=== PATIENT | female | born 1960 | race Caucasian/White ===

== ENCOUNTER 2020-12-22 15:06 | Inpatient (IN) | payer BC ==
[~2020-12-22] VITALS: Ht 165.1 cm; Wt 63.6 kg
[2020-12-22] MEDS ORDERED: CYMB60CA4 PO (15:15)
[2020-12-22] MEDS ORDERED: CRES5TAB PO (15:15)
[2020-12-22] MEDS ORDERED: SYNT100T PO (15:15)
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
--- OUTSIDE RECORDS SUMMARY | 2020-12-22 16:20 | CCD ---
Author Author [facility] Address Unknown Phone Unavailable Support Name Relationship Address Phone [place] Next Of Kin UNKNOWN [place], [place] Unavailable NAVEED HERRON Next Of Kin [address] [place] [address] Re-disclosure Warning The records that you are about to access may contain information from federally-assisted alcohol or drug abuse programs. If such information is present, then the following federally mandated warning applies: This information has been disclosed to you from records protected by federal confidentiality rules (42 CFR part 2). The federal rules prohibit you from making any further disclosure of this information unless further disclosure is expressly permitted by the written consent of the person to whom it pertains or as otherwise permitted by 42 CFR part 2. A general authorization for the release of medical or other information is NOT sufficient for this purpose. The Federal rules restrict any use of the information to criminally investigate or prosecute any alcohol or drug abuse patient.The records that you are about to access may contain highly sensitive health information, the redisclosure of which is protected by Article 27-F of the [facility] Public Health law. If you continue you may have access to information: Regarding HIV / AIDS; Provided by facilities licensed or operated by the [facility] Office of Mental Health; or Provided by the [facility] Office for People With Developmental Disabilities. If such information is present, then the following [facility] mandated warning applies: This information has been disclosed to you from confidential records which are protected by state law. State law prohibits you from making any further disclosure of this information without the specific written consent of the person to whom it pertains, or as otherwise permitted by law. Any unauthorized further disclosure in violation of state law may result in a fine or alf sentence or both. A general authorization for the release of medical or other information is NOT sufficient authorization for further disc losure. Medications No Information Insurance Providers Payer name Policy type / Coverage type Policy ID Covered republican ID Covered republican's relationship to alatorre Policy Alatorre Plan Information [place] P[place] 302/307 [id number] SP [id number] Problems, Conditions, and Diagnoses No Information Surgeries/Procedures No Information Results No Information Social History No Information
[2020-12-22 16:38] LABS: BASO % 0.7 % (0.0-1.0); EOS # 0.2 10^3/uL (0.0-0.5); EOS % 3.6 % (0.0-3.0); HEMATOCRIT 38.7 % (36.0-47.0); HEMOGLOBIN 12.8 g/dl (12.0-15.5); LYMPH # 1.5 10^3/uL (1.5-5.0); MEAN CORPUSCULAR HEMOGLOBIN 31.6 pg (27.0-33.0); MEAN CORPUSCULAR HGB CONC 33.1 g/dl (32.0-36.5); MEAN CORPUSCULAR VOLUME 95.6 fl (80.0-96.0); MONO # 0.6 10^3/uL (0.0-0.8); MONO % 14.5 % (2.0-8.0); NEUTROPHILS # 1.9 10^3/uL (1.5-8.5); PLATELET COUNT, AUTOMATED 218 10^3/uL (150-450); RED BLOOD COUNT 4.05 10^6/uL (4.00-5.40); WHITE BLOOD COUNT 4.1 10^3/uL (4.0-10.0)
[2020-12-22 16:58] LABS: ERYTHROCYTE SEDIMENTATION RATE 7 mm/hr (0-30)
[2020-12-22 17:09] LABS: BLOOD UREA NITROGEN 23 MG/DL (7-18); CARBON DIOXIDE LEVEL 30 MEQ/L (21-32); CHLORIDE LEVEL 104 MEQ/L (98-107); GLOMERULAR FILTRATION RATE > 60.0 (>45); GLUCOSE, FASTING 102 MG/DL (70-100); POTASSIUM SERUM 3.8 MEQ/L (3.5-5.1); SODIUM LEVEL 140 MEQ/L (136-145)
--- NOTE | 2020-12-22 17:44 | ECGEPIP ---
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
[2020-12-22] MEDS ORDERED: NS 1,000 ML IV ONE (18:30)
[2020-12-22] MEDS ORDERED: D5W/0.45% SODIUM CHLORIDE 1,000 ML IV SCH (18:35)
[2020-12-22] MEDS ORDERED: MORPHINE 2 MG/ML 1ML VIAL (J2270) IV PRN (18:35)
--- OUTSIDE RECORDS SUMMARY | 2020-12-22 18:36 | CCD ---
Author Author [facility] Address Unknown Phone Unavailable Support Name Relationship Address Phone [place] Next Of Kin [place], [place] Unavailable NAVEED HERRON Next Of Kin [address] [place] [address] Re-disclosure Warning The records that you are [...] is protected by Article 27-F of the [facility] Public Health law. If you continue you may have access to information: Regarding HIV / AIDS; Provided by facilities licensed or operated by the [facility] Office of Mental Health; or Provided by the [facility] Office for People With Developmental Disabilities. If such information is present, then the following [facility] mandated warning applies: This information has been [...] law may result in a fine or skilled nursing sentence or both. A general authorization for the release of medical or other information is NOT sufficient authorization for further disc losure. Medications No Information Insurance Providers Payer name Policy type / Coverage type Policy ID Covered republican ID Covered republican's relationship to alatorre Policy Alatorre Plan Information [employer]BS [place] PPO 302/307 [id number] SP [id number] Problems, Conditions, and Diagnoses No Information Surgeries/Procedures No Information Results No Information Social History No Information
--- NOTE | 2020-12-22 18:55 | REP ---
INDICATION: PREOP. COMPARISON: None. TECHNIQUE: PA and lateral FINDINGS: The lung rosado are adequately inflated. There is no pleural effusion, lateral pleural thickening or dense consolidation. Some minor apical pleuroparenchymal scarring, left greater than right. No cardiomegaly, vascular redistribution or pulmonary edema. The aorta and airway are intact. The bony thorax shows no acute finding. No free air under the diaphragm. IMPRESSION: 1. No acute cardiopulmonary change. <Electronically signed by Jordan Prakash > 12/22/20 0424
[2020-12-22] MEDS ORDERED: LAMI250T8 PO (19:10)
[2020-12-22] MEDS ORDERED: METF-838 PO (19:10)
[2020-12-22] MEDS ORDERED: LEVO50CA PO (19:10)
[2020-12-22] MEDS ORDERED: CLON1TAB8 PO (19:10)
[2020-12-22 19:11] LABS: RSV AMPLIFICATION NEGATIVE (NEGATIVE)
[2020-12-22] MEDS ORDERED: THYR15TA PO (19:11)
[2020-12-22] MEDS ORDERED: HOME MED LIST COMPLETE! XX SCH (19:15)
[2020-12-22] MEDS ORDERED: GLUCAGON INJ 1MG VIAL SC PRN (19:45)
[2020-12-22] MEDS ORDERED: GLUCOSE 4GM CHEW TABLET PO PRN (19:45)
[2020-12-22] MEDS ORDERED: DEXTROSE 50% 50 ML SYRINGE IV PRN (19:45)
[2020-12-22] MEDS ORDERED: LORazepam 2 MG/ML VIAL IV PRN (19:45)
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
[2020-12-22] MEDS ORDERED: fentaNYL 100 MCG/2 ML INJECTION (J3010) As Ordered ONE (20:40)
[2020-12-22] MEDS ORDERED: propofoL 200 MG/20 ML VIAL As Ordered ONE (20:40)
[2020-12-22] MEDS ORDERED: MIDAZOLAM INJ 2MG/2ML VIAL (J2250 PER 1MG) As Ordered ONE (20:40)
[2020-12-22] MEDS ORDERED: LIDOCAINE 2% 100MG/5ML SDV (FOR ANES.) As Ordered ONE (20:40)
[2020-12-22] MEDS: HumaLOG INSULIN (NovoLOG) PER UNIT SC SCH (21:00)
[2020-12-22] MEDS ORDERED: ceFAZolin 2 GM/D5W 50 ML IV BAG (J0690 PER 500MG) As Ordered ONE (21:11)
[2020-12-22] MEDS ORDERED: ONDANSETRON 4MG/2ML VIAL As Ordered ONE (21:14)
[2020-12-22] MEDS ORDERED: dexameTHASONE 4 MG/ML 1ML VIAL (J1100 PER 1MG) As Ordered ONE (21:14)
[2020-12-22] MEDS ORDERED: BUPIVACAINE HCL 0.25% 30ML VIAL As Ordered ONE (21:25)
[2020-12-22] MEDS ORDERED: TRANEXAMIC ACID 100 MG/ML 10ML VIAL As Ordered ONE (21:25)
[2020-12-22] MEDS ORDERED: oxyCODONE 5MG TAB PO PRN (22:40)
[2020-12-22] MEDS ORDERED: fentaNYL 100 MCG/2 ML INJECTION (J3010) IV PRN (22:40)
[2020-12-22] MEDS ORDERED: LR 1,000 ML IV SCH (22:40)
[2020-12-22] MEDS ORDERED: ONDANSETRON 4MG/2ML VIAL IV PRN (22:40)
[2020-12-22 23:00] VITALS: BP 131/87
[2020-12-22 23:30] VITALS: BP 128/83
[2020-12-23] VITALS (12 sets, daily range): BP systolic 94–137; BP diastolic 62–85
[2020-12-23] MEDS: DULoxetine 30MG CAPSULE (CYMBALTA) PO SCH ×2 (00:06→20:14)
[2020-12-23] MEDS: lamoTRIgine 100MG TAB PO SCH ×3 (00:06→20:16)
[2020-12-23] MEDS: PERCOCET 5MG/325MG TAB PO PRN ×4 (00:06→20:18)
[2020-12-23] MEDS: lamoTRIgine 25MG TAB PO SCH ×3 (00:07→20:15)
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
[2020-12-23] MEDS: LEVOTHYROXINE 50MCG TABLET (0.05MG) PO SCH (06:27)
[2020-12-23 06:50] LABS: BASO % 0.4 % (0.0-1.0); HEMATOCRIT 38.9 % (36.0-47.0); HEMOGLOBIN 12.9 g/dl (12.0-15.5); LYMPH # 0.7 10^3/uL (1.5-5.0); LYMPH % 13.8 % (24.0-44.0); MEAN CORPUSCULAR HEMOGLOBIN 31.3 pg (27.0-33.0); MEAN CORPUSCULAR HGB CONC 33.2 g/dl (32.0-36.5); MEAN CORPUSCULAR VOLUME 94.4 fl (80.0-96.0); MONO # 0.1 10^3/uL (0.0-0.8); MONO % 2.9 % (2.0-8.0); NEUTROPHILS % 82.7 % (36.0-66.0); PLATELET COUNT, AUTOMATED 223 10^3/uL (150-450); RED BLOOD COUNT 4.12 10^6/uL (4.00-5.40); WHITE BLOOD COUNT 4.9 10^3/uL (4.0-10.0)
[2020-12-23 07:09] LABS: HEMOGLOBIN A1c 5.3 %
[2020-12-23 07:16] LABS: BLOOD UREA NITROGEN 13 MG/DL (7-18); CALCIUM LEVEL 8.5 MG/DL (8.8-10.2); CARBON DIOXIDE LEVEL 25 MEQ/L (21-32); CHLORIDE LEVEL 106 MEQ/L (98-107); CREATININE FOR GFR 0.82 MG/DL (0.55-1.30); GLOMERULAR FILTRATION RATE > 60.0 (>45); GLUCOSE, FASTING 174 MG/DL (70-100); POTASSIUM SERUM 4.2 MEQ/L (3.5-5.1); SODIUM LEVEL 138 MEQ/L (136-145)
[2020-12-23] MEDS: HumaLOG INSULIN (NovoLOG) PER UNIT SC SCH ×4 (08:10→21:00)
[2020-12-23] MEDS: ROSUVASTATIN 10 MG TAB (CRESTOR) PO SCH (08:10)
[2020-12-23] MEDS ORDERED: FLUBLOK(EGG FREE)(QUAD)INFLUENZA VACC 0.5ML SYRINGE 18YRS & OLDER IM ONE (09:00)
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
[2020-12-23] MEDS ORDERED: NS 1,000 ML IV SCH (10:55)
[2020-12-23] MEDS ORDERED: PERCOCET PO (16:31)
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
[2020-12-24] MEDS: PERCOCET 5MG/325MG TAB PO PRN ×2 (05:28→14:08)
[2020-12-24] MEDS: LEVOTHYROXINE 50MCG TABLET (0.05MG) PO SCH (05:28)
[2020-12-24 06:00] VITALS: BP 113/71
[2020-12-24 06:05] LABS: BASO % 0.2 % (0.0-1.0); EOS # 0.2 10^3/uL (0.0-0.5); EOS % 2.8 % (0.0-3.0); HEMATOCRIT 38.9 % (36.0-47.0); HEMOGLOBIN 12.8 g/dl (12.0-15.5); LYMPH # 2.2 10^3/uL (1.5-5.0); MEAN CORPUSCULAR HEMOGLOBIN 31.3 pg (27.0-33.0); MEAN CORPUSCULAR HGB CONC 32.9 g/dl (32.0-36.5); MEAN CORPUSCULAR VOLUME 95.1 fl (80.0-96.0); MONO # 0.5 10^3/uL (0.0-0.8); MONO % 9.3 % (2.0-8.0); NEUTROPHILS # 2.4 10^3/uL (1.5-8.5); NEUTROPHILS % 45.5 % (36.0-66.0); PLATELET COUNT, AUTOMATED 196 10^3/uL (150-450); RED BLOOD COUNT 4.09 10^6/uL (4.00-5.40); WHITE BLOOD COUNT 5.3 10^3/uL (4.0-10.0)
[2020-12-24 06:23] LABS: BLOOD UREA NITROGEN 15 MG/DL (7-18); CALCIUM LEVEL 8.7 MG/DL (8.8-10.2); CARBON DIOXIDE LEVEL 25 MEQ/L (21-32); CHLORIDE LEVEL 112 MEQ/L (98-107); GLOMERULAR FILTRATION RATE > 60.0 (>45); GLUCOSE, FASTING 94 MG/DL (70-100); SODIUM LEVEL 141 MEQ/L (136-145)
[2020-12-24] MEDS: HumaLOG INSULIN (NovoLOG) PER UNIT SC SCH ×2 (07:30→12:00)
[2020-12-24] MEDS: lamoTRIgine 100MG TAB PO SCH (09:26)
[2020-12-24] MEDS: ROSUVASTATIN 10 MG TAB (CRESTOR) PO SCH (09:26)
[2020-12-24] MEDS: lamoTRIgine 25MG TAB PO SCH (09:26)
--- NOTE | 2020-12-24 11:50 | DS.PDOC ---
Discharge Summary General Date of Admission Dec 22, 2020 at 18:28 Date of Discharge 12/24/20 Discharge Summary discharge summary dictated job #[id number] Vital Signs/I&Os Vital Signs Date Time Temp Pulse Resp B/P (MAP) Pulse Ox O2 Delivery O2 Flow Rate FiO2 12/24/20 06:00 97.7 68 17 113/71 (85) 94 Room Air I&O- Last 24 Hours up to 6 AM 12/24/20 06:00 Intake Total 2700 ml Output Total 1850 ml Balance 850 ml Laboratory Data Labs 24H Laboratory Tests 2 12/23/20 16:52: Bedside Glucose (Misc Panel) 126H 12/23/20 20:49: Bedside Glucose (Misc Panel) 112 12/24/20 05:27: Immature Granulocyte % (Auto) 0.2, Neutrophils (%) (Auto) 45.5, Lymphocytes (%) (Auto) 42.0, Monocytes (%) (Auto) 9.3H, Eosinophils (%) (Auto) 2.8, Basophils (%) (Auto) 0.2, Neutrophils # (Auto) 2.4, Lymphocytes # (Auto) 2.2, Monocytes # (Auto) 0.5, Eosinophils # (Auto) 0.2, Basophils # (Auto) 0.0, Nucleated Red Blood Cells % (auto) 0.0, Anion Gap 4L, Glomerular Filtration Rate > 60.0, Calcium Level 8.7L 12/24/20 11:42: Bedside Glucose (Misc Panel) 75L CBC/BMP Laboratory Tests 12/24/20 05:27 FSBS Laboratory Tests Test 12/23/20 16:52 12/23/20 20:49 12/24/20 11:42 Range/Units Bedside Glucose (Misc Panel) 126 112 75 80-115 MG/DL Microbiology Microbiology 12/22/20 Gram Stain - Final, Resulted 12/22/20 Abscess Culture, Resulted Pending 12/22/20 Anaerobic Culture, Resulted Pending 12/22/20 Gram Stain - Final, Resulted 12/22/20 Abscess Culture, Resulted Pending 12/22/20 Anaerobic Culture, Resulted Pending Discharge Medications Scheduled Duloxetine Hcl (Cymbalta) 60 Mg Capsule.dr, 60 MG PO QHS, (Reported) Lamotrigine (Lamictal Xr) 250 Mg Tab.er.24, 250 MG PO DAILY, (Reported) Levothyroxine Sodium (Levothyroxine) 50 Mcg Capsule, 50 MCG PO DAILY, (Reported) Metformin HCl (Metformin HCl ER) 500 Mg Tab.er.24h, 500 MG PO QPM, (Reported) Rosuvastatin Calcium (Crestor) 5 Mg Tablet, 5 MG PO DAILY, (Reported) Thyroid ([place] Thyroid) 15 Mg Tablet, 15 MG PO DAILY, (Reported) Scheduled PRN Clonazepam (Clonazepam) 1 Mg Tablet, 1-2 MG PO QHS PRN for ANXIETY, (Reported) Oxycodone/Acetaminophen (Oxycodone-Acetaminophen 5-325) 1 Each Tablet, 1 TAB PO Q6HP PRN for MODERATE PAIN (PS 5-7) Allergies Coded Allergies: Sulfa (Sulfonamide Antibiotics) (Verified Allergy, Unknown, 12/22/20) KANDICE BROWN MD Dec 24, 2020 11:50
[2020-12-24 14:00] VITALS: BP 126/80
--- NOTE | 2020-12-24 18:10 | DSES ---
DISCHARGE SUMMARY DATE OF ADMISSION: 12/22/2020 DATE OF DISCHARGE: 12/24/2020 ORTHOPEDIC SURGEON: Zbigniew Payne MD. PROCEDURE PERFORMED: 12/22/2020: Left index escharotomy of the distal proximal phalanx and irrigation and debridement. PRIMARY DISCHARGE DIAGNOSES: 1. Traumatic injury to the left index finger secondary to electrocution with compartment syndrome status post incision, drainage and irrigation 12/22/2020. 2. Type-2 diabetes. 3. Hypertension. 4. Dyslipidemia. 5. Hypothyroidism. 6. Depression. DISCHARGE MEDICATIONS: 1. Percocet 1 tablet as needed q6h as needed for pain. 2. Clonazepam 1-2 mg at bedtime as needed for anxiety. 3. Cymbalta 60 mg at bedtime. 4. Lamictal 250 mg daily. 5. Synthroid 50 mcg daily. 6. Metformin 500 mg every evening. 7. Crestor 5 mg daily. 8. Thyroid 15 mg daily. DISCHARGE INSTRUCTIONS: 1. Wound care and post-op care per orthopedics surgeon Dr. Payne, to see the patient in the clinic within 5 days of discharge. 2. Primary care physician appointment within 7 days. HISTORY AND HOSPITAL COURSE: This is a 60 -year-old female admitted on 12/22/2020 after a traumatic injury with electrocution as she plugged her cord into the wall socket. Patient had visible swelling, redness and had severe pain of the left index finger and presented to the Emergency Room with complaints of feeling "like there's static in it". Orthopedic surgery saw the patient in the ER. The patient was diagnosed with traumatic compartment syndrome with recommendations for a fasciotomy, incision, drainage and debridement in the operating room. Patient was medically optimized by hospitalist and was sent directly to the OR from the Emergency Room. Patient underwent left index finger escharotomy of the distal and proximal phalanx and irrigation and debridement. Patient had some pain and discussed, was given Percocet as needed which resolved. Occupational therapy saw the patient with recommendations for outpatient OT. Patient was afebrile with normal white count and no empiric antibiotics were given. Patient is cleared for discharge home. PHYSICAL EXAMINATION ON DISCHARGE: Temperature 97.7, pulse 68, respiratory rate 17, blood pressure 113/71, 94% on room air. General: Patient is awake, alert, oriented to person, place and time. HEENT: No cyanosis. Extraocular muscles intact. Moist mucous membranes. Neck: No JVD or thyromegaly. Lungs: Clear to auscultation, no wheezes, rhonchi or rales. Heart: S1 and S2 sinus rhythm. Abdomen: Soft, nontender, nondistended, positive bowel sounds. Extremities: No cyanosis, clubbing or pitting edema. Skin: Left upper arm, hand and wrist are in a splint and bandaged. All of the fingers are pink in color, warm to touch. Patient is able to oppose the thumb with the third, fourth and fifth digits. LABORATORY DATA/IMAGING STUDIES/MICROBIOLOGY: Please see the chart. Time spent on discharge: Thirty minutes MTDD
== END 2020-12-24 15:30 | disposition home or self-care (01) | DRG 316 ==
LOC: M ED 15:06 → M ED INP 18:28 → CANRESERV 19:29 → ENRESERV 19:29 → M MSPAV 22:57
PROVIDERS: ADMIT Family Medicine; ATTEND General Practice
PROC: 0LD80ZZ Extraction of Left Hand Tendon, Open Approach (ICD-10-PCS; 2020-12-22)
PROC: 0L980ZZ Drainage of Left Hand Tendon, Open Approach (ICD-10-PCS; principal; 2020-12-22 20:30)
DX: T79.A12A Traumatic compartment syndrome of left upper extremity, initial encounter (principal); F32.A Depression, unspecified; E11.9 Type 2 diabetes mellitus without complications; E78.5 Hyperlipidemia, unspecified; E03.9 Hypothyroidism, unspecified; T23.029A Burn of unspecified degree of unspecified single finger (nail) except thumb, initial encounter; F41.9 Anxiety disorder, unspecified; Z79.84 Long term (current) use of oral hypoglycemic drugs; Z79.899 Other long term (current) drug therapy; Z88.2 Allergy status to sulfonamides; W86.0XXA Exposure to domestic wiring and appliances, initial encounter; Y92.008 Other place in unspecified non-institutional (private) residence as the place of occurrence of the external cause; Y93.89 Activity, other specified; Y99.8 Other external cause status